=== PATIENT | female | born 1960 | race Caucasian/White ===

== ENCOUNTER 2017-10-29 15:52 | Outpatient (CLI) | payer OTHER | END 2017-10-29 15:53 | disposition home or self-care (01) | LOC: BICMAMMO 15:52 | PROVIDERS: ATTEND Obstetrics & Gynecology | DX: Z12.31 Encounter for screening mammogram for malignant neoplasm of breast (principal); Z80.3 Family history of malignant neoplasm of breast | CPT/HCPCS: 77063; 77067 ==

== ENCOUNTER 2017-10-31 13:18 | Outpatient (CLI) | payer OTHER | END 2017-10-31 13:19 | disposition home or self-care (01) | LOC: BICMAMMO 13:18 | PROVIDERS: ATTEND Obstetrics & Gynecology | DX: N63.20 Unspecified lump in the left breast, unspecified quadrant (principal) | CPT/HCPCS: G0279 ==

== ENCOUNTER 2018-11-12 15:44 | Outpatient (CLI) | payer OTHER ==
--- NOTE | 2018-11-12 16:31 | MMO ---
Bilateral MAMMO Bilat Screen [facility]. CLINICAL HISTORY: Patient is 58 years old and is seen for screening. The patient has the following family history of breast cancer: mother, at age 69 and 2 cousin females, maternal. The patient has no personal history of cancer. VIEWS: The views performed were: bilateral craniocaudal with tomosynthesis and bilateral mediolateral oblique with tomosynthesis. FILMS COMPARED: The present examination has been compared to prior imaging studies performed at [facility] on 12/17/2002, 08/14/2004, 08/20/2005, 08/27/2006, 09/10/2007, 09/19/2008, 09/27/2009, 09/28/2010, 10/02/2011, 10/07/2012, 10/11/2013, 10/12/2014, 10/16/2015, 10/22/2016, 10/29/2017 and 10/31/2017. MAMMOGRAM FINDINGS: The breasts are heterogeneously dense, which could obscure a lesion on mammography. There are no suspicious masses, suspicious calcifications, or new areas of architectural distortion. IMPRESSION: THERE IS NO MAMMOGRAPHIC EVIDENCE OF MALIGNANCY. A ROUTINE FOLLOW-UP MAMMOGRAM IN 1 YEAR IS RECOMMENDED. THE RESULTS OF THIS EXAM WERE SENT TO THE PATIENT. ACR BI-RADS Category 1 - Negative MAMMOGRAPHY NOTE: 1. A negative mammogram report should not delay a biopsy if a dominant of clinically suspicious mass is present. 2. Approximately 10% to 15% of breast cancers are not detected by mammography. 3. Adenosis and dense breasts may obscure an underlying neoplasm.
== END 2018-11-12 15:45 | disposition home or self-care (01) ==
LOC: BICMAMMO 15:44
PROVIDERS: ATTEND Obstetrics & Gynecology
DX: Z12.31 Encounter for screening mammogram for malignant neoplasm of breast (principal); Z80.3 Family history of malignant neoplasm of breast
CPT/HCPCS: 77063; 77067